=== PATIENT | female | born 1945 | race Caucasian/White ===

== ENCOUNTER 2019-04-19 23:35 | Inpatient (IN) | payer OTHER ==
[~2019-04-19] VITALS: Ht 167.6 cm; Wt 72.0 kg
[2019-04-20 01:01] LABS: Basophils # (auto) 0.1 uL; Basophils % (auto) 0.5 % (0.0-2.0); Eosinophils # (auto) 0 uL; Eosinophils % (auto) 0.3 % (0.0-7.0); Hematocrit 33.2 % (36.0-46.0); Hemoglobin 11.2 g/dL (12.2-16.2); Lymphocytes # (auto) 1.4 uL; Lymphocytes % (auto) 8.5 % (10.0-50.0); Mean Corpuscular Hemoglobin 33.8 pg (28.0-32.0); Mean Corpuscular Hgb Conc. 33.7 g/dL (32.0-36.0); Mean Corpuscular Volume 100.2 fL (80.0-100.0); Monocytes # (auto) 1.1 uL; Monocytes % (auto) 6.7 % (0.0-12.0); Neutrophils # (auto) 14.3 uL; Platelet Count (auto) 396 10^3/uL (140-450); Red Blood Cells 3.32 10^6/uL (4.0-5.20)
[2019-04-20 01:20] LABS: Alanine Aminotransferase 25 U/L (13-56); Albumin 3.6 g/dL (3.4-5.0); Anion Gap 8 (5-15); Aspartate Aminotransferase 28 U/L (15-37); BUN/Creatinine Ratio 12.3; Blood Urea Nitrogen 15 mg/dL (7-18); Calcium 9.2 mg/dL (8.5-10.1); Carbon Dioxide 24 mmol/L (21-32); Chloride 104 mmol/L (98-107); GFR African American 56 mL/min; GFR Non-African American 46 mL/min; Glucose 149 mg/dL (74-106); Potassium 4.3 mmol/L (3.5-5.1); Sodium 136 mmol/L (136-145)
[2019-04-20 01:24] LABS: Alkaline Phosphatase 78 U/L (45-117); Bilirubin, Total 0.4 mg/dL (0.2-1.0); Total Protein 7.6 g/dL (6.4-8.2)
[2019-04-20] MEDS ORDERED: MORPHINE SULFATE 4 MG/ML SYR/VIAL IV ONE (02:45)
[2019-04-20] MEDS ORDERED: ONDANSETRON HCL 4 MG/2 ML VIAL IV ONE (02:45)
[2019-04-20] MEDS ORDERED: SODIUM CHLORIDE 0.9% 1,000 ML IV ONE ×2 (02:45→18:15)
[2019-04-20 03:22] LABS: Amylase 35 U/L (25-115); Lipase 107 U/L (73-393)
[2019-04-20 04:03] LABS: Urine Bacteria FEW /hpf (None Seen); Urine Blood Negative /uL (Negative); Urine Mucus FEW (None Seen); Urine Specific Gravity 1.019 (1.001-1.035); Urine WBC 10 /hpf (0 - 5)
[2019-04-20] MEDS ORDERED: cloNIDine HCL 0.1 MG TAB PO ONE (04:30)
[2019-04-20] MEDS ORDERED: TEMAZEPAM 15 MG CAP PO PRN (06:00)
[2019-04-20] MEDS ORDERED: ACETAMINOPHEN 325 MG TAB PO PRN (06:00)
[2019-04-20] MEDS ORDERED: MORPHINE SULFATE 4 MG/ML SYR/VIAL IV PRN (06:00)
[2019-04-20] MEDS ORDERED: HYDROcodone-ACET 5/325MG TAB PO PRN (06:00)
[2019-04-20] MEDS ORDERED: ONDANSETRON HCL 4 MG/2 ML VIAL IV PRN (06:00)
[2019-04-20 09:00] VITALS: BP 157/79
--- NOTE | 2019-04-20 09:15 | NUR ---
PT ADMITTED TO FLOOR FROM E.R.. PT ORIENTED TO UNIT AND CALL LIGHT. PT REPORTS 7/10 PAIN LEFT SIDE. VITALS: 97.5, HR 73, RR 18, 02 94, BP 157/79.
[2019-04-20] MEDS: FAMOTIDINE 20 MG TAB PO SCH (10:00)
[2019-04-20] MEDS: LEVOFLOXACIN 500MG 100 ML IV SCH (10:05)
[2019-04-20] MEDS: amLODIPine BESYLATE 5 MG TAB PO SCH (10:10)
[2019-04-20] MEDS: ENOXAPARIN SOD 40 MG/0.4 ML SYRINGE SC SCH (10:10)
[2019-04-20] MEDS ORDERED: PERCOT PO (11:29)
[2019-04-20] MEDS ORDERED: TRAM50TA2 PO (11:30)
[2019-04-20] MEDS ORDERED: NAP500T PO (11:30)
[2019-04-20] MEDS ORDERED: POLYETHYLENE GLYCOL 17 GM PWDR PO ONE ×2 (12:15→19:00)
[2019-04-20] MEDS ORDERED: DOCUSATE SOD 100 MG CAP PO PRN (12:15)
--- NOTE | 2019-04-20 12:21 | NUR ---
DR TRUJILLO CALLED, NEW ORDERS FOR CT OF CHEST, MIRALAX, AND COLACE. Addendum: 04/20/19 at 1815 by FELICIA BURTON RN AND TO RESUME HOME PAIN MEDICATIONS.
[2019-04-20 13:00] VITALS: BP 148/74
--- NOTE | 2019-04-20 13:00 | NUR ---
CALLED DR TRUJILLO. PREVIOUS ORDERS FOR PERCOCET 10/325 BID , ONLY 5/325 AVAILABLE. LEFT MESSAGE NOTIFYING ACETAMINOPHEN WOULD BE DOUBLED, AND REQUESTED ORDERS.
--- NOTE | 2019-04-20 13:25 | NUR ---
MRSA SWAB SENT TO LAB. PT REPORTS CONSTIPATION, PRN MEDICATION GIVEN, WILL CONTINUE TO MONITOR.
--- NOTE | 2019-04-20 14:41 | NUR ---
Dr Luu called back, new orders for Percocet.
[2019-04-20] MEDS ORDERED: OXYCODONE W/ ACETAMINOPHEN 5/325MG TABLET PO PRN ×2 (14:45→19:00)
[2019-04-20 17:00] VITALS: BP 149/69
[2019-04-20] MEDS ORDERED: traMADol HCL 50 MG TAB PO PRN ×2 (18:15→19:00)
[2019-04-20] MEDS: DOCUSATE SOD 100 MG CAP PO SCH ×2 (18:26→21:57)
[2019-04-20] MEDS ORDERED: LACTULOSE 20Gm/30ML SOLN PO ONE (18:45)
[2019-04-20] MEDS ORDERED: BISACODYL 10 MG RECT SUPP PR PRN (18:45)
--- NOTE | 2019-04-20 19:10 | NUR ---
MD CORTEZ STATES HE HAS CONSULTED THE PATIENT AND WILL REVIEW CHART AND ENTER CONSULTATION NOTE
--- NOTE | 2019-04-20 19:25 | NUR ---
Opening Shift Note Assumed care of patient, awake and alert. No S/S of distress/SOB or pain. Instructed on POC and to call for assist PRN, will continue to monitor for changes Q1hr and PRN.
[2019-04-20 20:00] VITALS: BP 135/67
--- NOTE | 2019-04-20 20:00 | NUR ---
PATIENT REFUSED ONE TIME DOSE OF LACTULOSE. STATES "THEY ALREADY GAVE ME SOMETHING AND I FEEL LIKE I MIGHT HAVE A BOWEL MOVEMENT SOON". ADVISED PATIENT TO CALL RN IF CHANGE OF MIND.
--- NOTE | 2019-04-20 21:50 | NUR ---
BP 173/84, HR 100BPM WILL ADMINISTER CATAPRES PRN PER ORDER AND REASSESS BP
[2019-04-20] MEDS: cloNIDine HCL 0.1 MG TAB PO PRN (21:57)
[2019-04-20] MEDS ORDERED: ALBUTEROL SULF 2.5 MG/0.5ML(0.5%) NEB SOLN NEB PRN (23:15)
[2019-04-20 23:53] VITALS: BP 173/84
[2019-04-21 04:56] LABS: Basophils # (auto) 0 uL; Basophils % (auto) 0.4 % (0.0-2.0); Eosinophils # (auto) 0.1 uL; Eosinophils % (auto) 1.3 % (0.0-7.0); Hemoglobin 9.1 g/dL (12.2-16.2); Lymphocytes % (auto) 18.1 % (10.0-50.0); Mean Corpuscular Hgb Conc. 33.6 g/dL (32.0-36.0); Mean Corpuscular Volume 101.1 fL (80.0-100.0); Monocytes # (auto) 1.1 uL; Monocytes % (auto) 9.4 % (0.0-12.0); Neutrophils # (auto) 7.9 uL; Neutrophils % (auto) 70.8 % (37.0-80.0); Nucleated Red Blood Cells % 0.1 %; Platelet Count (auto) 276 10^3/uL (140-450); Red Blood Cells 2.67 10^6/uL (4.0-5.20); Red Cell Distribution Width 13.8 % (11.8-14.3); White Blood Cell 11.2 10^3/uL (4.4-10.8)
[2019-04-21 05:30] VITALS: BP 144/54
[2019-04-21 05:32] LABS: BUN/Creatinine Ratio 14.8; Calcium 8.9 mg/dL (8.5-10.1); Potassium 4.3 mmol/L (3.5-5.1)
[2019-04-21] MEDS: DOCUSATE SOD 100 MG CAP PO SCH ×2 (05:55→15:09)
[2019-04-21] MEDS: IPRATROPIUM BROM 0.5 MG/2.5ML INH SOL NEB SCH ×2 (06:05→11:26)
--- NOTE | 2019-04-21 08:20 | NUR ---
PT RESTING IN BED. PT REPORTS PAIN ON LEFT SIDE UPON INSPIRATION AT A 5/10. PRN PAIN MED ALREADY GIVEN BY NIGHT NURSE. PT REPORTS SHE DOES NOT LIKE HER BREAKFAST. FAXED DIETARY AND REQUESTED NEW TRAY. DIETARY CALLED BACK, OFFERED DIFFERENT ITEMS, PT REPORTS SHE WOULD LIKE AN [place] MUFFIN. PT RESTING IN BED, WILL CONTINUE TO MONITOR. Addendum: 04/21/19 at 0918 by FELICIA BURTON RN PT REPORTS SHE DIDN'T WANT TO TAKE HER LACTULOSE LAST NIGHT BECAUSE SHE DIDN'T WANT TO HAVE TO KEEP GETTING UP TO USE BATHROOM.
[2019-04-21 09:00] VITALS: BP 144/63
[2019-04-21] MEDS ORDERED: ALBUTEROL SULF 2.5 MG/0.5ML(0.5%) NEB SOLN NEB PRN (09:15)
[2019-04-21] MEDS: amLODIPine BESYLATE 5 MG TAB PO SCH (10:22)
[2019-04-21] MEDS: FAMOTIDINE 20 MG TAB PO SCH (10:25)
[2019-04-21] MEDS: LEVOFLOXACIN 500MG 100 ML IV SCH (10:25)
[2019-04-21] MEDS: ENOXAPARIN SOD 40 MG/0.4 ML SYRINGE SC SCH (10:28)
--- NOTE | 2019-04-21 11:00 | NUR ---
DR CORTEZ SAW PATIENT. REPORTS TO ASSESS FOR HOME O2, CONTINUE ABX, AND NEW ALBUTEROL ORDERS.
--- NOTE | 2019-04-21 11:42 | NUR ---
ASSESSED PT O2 ON ROOM AIR FOR [address] CORTEZ. 02 ON RA IS 92%.
--- NOTE | 2019-04-21 12:13 | NUR ---
AMBULATED WITH PATIENT IN HALLWAY AND AROUND NURSING STATION, PT 02 90%. Addendum: 04/21/19 at 1214 by FELICIA BURTON RN ON RA
[2019-04-21 13:00] VITALS: BP 177/76
--- NOTE | 2019-04-21 14:56 | NUR ---
DR TRUJILLO CALLED, NEW ORDERS FOR GOLYTELY AND TO GET CLEARANCE FROM DR CORTEZ PULMONOLOGY. CALLED PBX AND WAS TRANSFERRED TO DR CORTEZ EXCHANGE. LEFT MESSAGE WITH RESEARCH AND DEVELOPMENT ENGINEER, AWAITING CALL BACK.
[2019-04-21] MEDS: GOLYTELY 4L KIT PO ONE ×2 (15:00→15:10)
--- NOTE | 2019-04-21 15:04 | NUR ---
DR CORTEZ CALLED BACK, REPORTED PT O2 WHILE AMBULATING ON RA WAS 90%, DR CORTEZ REPORTS PT IS CLEARED FOR DC FROM PULMONARY VIEW.
--- NOTE | 2019-04-21 15:23 | NUR ---
PT REPORTS SHE HAD ONE MEDIUM SIZE BM AND ANOTHER SMALL BM. CALLED DR TRUJILLO AND LEFT MESSAGE REPORTING PT HAS HAD 2 BM'S AND IS CLEARED BY DR CORTEZ, AWAITING CALL BACK.
--- NOTE | 2019-04-21 16:12 | NUR ---
SPOKE WITH DR RONNIE MD REPORTS HE RECEIVED MESSAGE AND TO HOLD [facility], AND PT WILL BE DC'D.
[2019-04-21] MEDS: cloNIDine HCL 0.1 MG TAB PO PRN (16:34)
[2019-04-21] MEDS ORDERED: ALBUAER3 IN (16:41)
[2019-04-21] MEDS ORDERED: DOCU-94 PO (16:41)
[2019-04-21] MEDS ORDERED: IPRIH IN (16:41)
[2019-04-21] MEDS ORDERED: LEVO500T21 PO (16:41)
[2019-04-21] MEDS ORDERED: AML5T PO (16:41)
[2019-04-21] MEDS ORDERED: POLY33504 PO (16:41)
--- NOTE | 2019-04-21 16:49 | NUR ---
SPOKE WITH PATIENT, PATIENT IS REFUSING HOME HEALTH EVALUATION AT THIS TIME. SHE REPORTS SHE ALREADY HAS HOME HEALTH SET UP AT THIS TIME BUT IS UNABLE TO REMEMBER THE NAME OF THE COMPANY. ARASELI CASTILLO NOTIFIED.
[2019-04-21 17:07] VITALS: BP 177/56
[2019-04-21 17:13] VITALS: BP 162/74
--- NOTE | 2019-04-21 17:58 | NUR ---
Discharge instructions given as ordered. Encourage to follow up with PMD as instructed. Patient notified prescriptions sent to her pharmacy. All questions and concerns addressed. Patient verbalized understanding. Medication reconciliation form completed and copy given to patient. IV removed with catheter intact, pressure dressing applied. Patient taken to vehicle via wheelchair with all personal belongings, accompanied by staff and spouse. No distress noted at time of departure.
== END 2019-04-21 17:30 | disposition home health service (06) | DRG 194 ==
LOC: EDBD 23:35 → ER 23:46 → OVERFLOW 23:47 → WEST WING 04-20 09:13
PROVIDERS: ADMIT Nurse Practitioner; ATTEND Internal Medicine
DX: J18.9 Pneumonia, unspecified organism (principal); N17.9 Acute kidney failure, unspecified; J90 Pleural effusion, not elsewhere classified; N39.0 Urinary tract infection, site not specified; J44.0 Chronic obstructive pulmonary disease with (acute) lower respiratory infection; I10 Essential (primary) hypertension; M54.5 Low back pain; F17.200 Nicotine dependence, unspecified, uncomplicated; G89.29 Other chronic pain; K59.00 Constipation, unspecified; M70.60 Trochanteric bursitis, unspecified hip; Z88.2 Allergy status to sulfonamides; Z90.710 Acquired absence of both cervix and uterus; Z71.6 Tobacco abuse counseling
CPT/HCPCS: 36415; 71045; 71250; 74176; 80048; 80053; 81001; 82150; 83690; 83880; 84484; 85025; 87040; 93005; 94640; 96374; 96375; G0378; J1956; J2405

== ENCOUNTER 2020-03-26 06:34 | Day surgery (SDC) | payer OTHER ==
[~2020-03-26] VITALS: Ht 167.6 cm; Wt 79.4 kg
[~2020-03-26 06:34] MED LIST: ALBUAER3 IN; AMIO200T33 PO; APIX5TAB PO; DULO1CAP5 PO; LOSA-39 PO; METO-158 PO; TRAM50TA2 PO; UMEC1AER IN
[2020-03-26] MEDS ORDERED: fentaNYL CITRATE 100 MCG/2 ML VL ONE (07:48)
[2020-03-26] MEDS ORDERED: diphenhdrAMINE HCL 50 MG/1 ML VL ONE (07:48)
[2020-03-26] MEDS ORDERED: MIDAZOLAM HCL 1MG/1ML-2 ML VIAL ONE (07:49)
[2020-03-26] MEDS ORDERED: LIDOCAINE VISCOUS 2% 15ML UD ONE (07:52)
[2020-03-26] MEDS ORDERED: MIDAZOLAM HCL 1MG/1ML-2 ML VIAL IV ONE (08:00)
[2020-03-26] MEDS ORDERED: fentaNYL CITRATE 100 MCG/2 ML VL IV ONE (08:00)
[2020-03-26] MEDS ORDERED: LIDOCAINE VISCOUS 2% 15ML UD PO ONE (08:00)
== END 2020-03-26 10:54 | disposition home or self-care (01) ==
LOC: CATH 06:34
PROVIDERS: ATTEND Specialist
DX: I48.91 Unspecified atrial fibrillation (principal); E78.5 Hyperlipidemia, unspecified; I12.9 Hypertensive chronic kidney disease with stage 1 through stage 4 chronic kidney disease, or unspecified chronic kidney disease; N18.9 Chronic kidney disease, unspecified; J44.9 Chronic obstructive pulmonary disease, unspecified; Z88.1 Allergy status to other antibiotic agents; Z90.710 Acquired absence of both cervix and uterus; Z68.28 Body mass index [BMI] 28.0-28.9, adult
CPT/HCPCS: 92960; 93005; 93312; J2250; J3010; U0003; 99152